=== PATIENT | male | born 1940 | race Caucasian/White ===

== ENCOUNTER → 2016-08-23 | Outpatient (CLI) | payer OTHER ==
--- NOTE | 2016-08-23 16:38 | DX ---
PA and Lateral Chest - August 23, 2016 at 1416 hours Clinical Indications: Dyspnea on exertion. Comparison: Spine radiographs June 01, 2011. Findings: The lungs are clear, and no masses are found. There is prominence of the epicardial fat p ad. The heart and pulmonary vessels are normal. There are no pleural effusions and no pneumothorax. The bones exhibit multilevel degenerative changes and anterior bridging hypertrophic osteoarthritic changes. Impression: No acute cardiopulmonary process.
== END ==
LOC: BMCIMAGING 14:19
PROVIDERS: ATTEND Internal Medicine
DX: R06.09 Other forms of dyspnea (principal)

== ENCOUNTER → 2016-09-01 | Outpatient (CLI) | payer OTHER ==
--- NOTE | 2016-09-01 13:14 | US ---
Bilateral Duplex/Doppler Carotid Sonography Clinical Indications: Altered mental status in a 76-year-old male; evaluate for arterial occlusive di sease. Technique: The cervical portions of the carotid and vertebral arteries were imaged and interrogated b y color and pulsed Doppler. Spectral analysis was performed. Findings: Right Carotid: The common carotid artery, bifurcation, and origins of the internal and external carot id arteries are well imaged. No plaque formation is seen at the level of the carotid bifurcation. Peak ICA systolic velocity; 81 cm/sec. The internal to common carotid artery ratio is calculated at 1.1. Peak ICA diastolic velocity; 29 cm/sec. There is no evidence of flow-limiting stenosis. Left Carotid: The common carotid artery, bifurcation, and origins of the internal and external caroti d arteries are well imaged. No plaque formation is seen at the level of the carotid bifurcation. Peak ICA systolic velocity; 78 cm/sec. The internal to common carotid artery ratio is calculated at 0.8. Peak ICA diastolic velocity; 26 cm/sec. There is no evidence of flow-limiting stenosis. Vertebral Arteries: Antegrade flow is shown by pulsed Duplex/Doppler of each vertebral artery. Impression: No carotid plaque formation is seen and there is no evidence for flow-limiting carotid st enosis. Measurement of carotid stenosis is based on velocity parameters that correlate the residual internal carotid diameter with [place] Symptomatic Carotid Endarterectomy Trial (NASCET) based stenosis levels.
== END ==
LOC: BMCIMAGING 11:31
PROVIDERS: ATTEND Internal Medicine
DX: R06.09 Other forms of dyspnea (principal); R41.82 Altered mental status, unspecified

== ENCOUNTER → 2017-01-16 | Outpatient (CLI) | payer OTHER | LOC: FCPNEURO 21:00 | PROVIDERS: ATTEND Psychiatry & Neurology Sleep Medicine | DX: G47.31 Primary central sleep apnea (principal); G47.33 Obstructive sleep apnea (adult) (pediatric) ==

== ENCOUNTER → 2017-03-17 | Outpatient (CLI) | payer OTHER | LOC: FCPNEURO 21:30 | PROVIDERS: ATTEND Psychiatry & Neurology Sleep Medicine | DX: G47.33 Obstructive sleep apnea (adult) (pediatric) (principal); G47.31 Primary central sleep apnea ==

== ENCOUNTER → 2017-09-26 | Outpatient (CLI) | payer OTHER ==
[~2017-09-26] MED LIST: GADOBUTROL 10 ML VIAL IVP ONE
== END ==
LOC: FIMAGING 15:10
PROVIDERS: ATTEND Internal Medicine
DX: G31.9 Degenerative disease of nervous system, unspecified (principal); R90.82 White matter disease, unspecified
CPT/HCPCS: 70553; A9585

== ENCOUNTER → 2017-12-14 | Outpatient (CLI) | payer OTHER ==
--- NOTE | 2017-12-14 11:56 | CPEEG ---
[f rep st] ELECTROENCEPHALOGRAM DATE OF STUDY: 12/14/2017 DATE OF INTERPRETATION: December 14, 2017 INTERPRETATION: Normal EEG during wakefulness and sleep. There were no potentially epileptogenic ab normalities present in the recording. REPORT: This EEG contains 10 Hz alpha activity over the posterior head regions. There was no abnorm al activation at rest or during photic stimulation. The patient fell asleep during the study. There was no abnormal activation during drowsiness, sleep, or during times of arousal. /[id number]/MODL
== END ==
LOC: FCPNEURO 09:54
PROVIDERS: ATTEND Psychiatry & Neurology Neurology
DX: R41.89 Other symptoms and signs involving cognitive functions and awareness (principal)

== ENCOUNTER → 2018-01-26 | Outpatient (CLI) | payer OTHER | LOC: BMCIMAGING 08:19 | PROVIDERS: ATTEND Internal Medicine | DX: R22.0 Localized swelling, mass and lump, head (principal); Z86.73 Personal history of transient ischemic attack (TIA), and cerebral infarction without residual deficits | CPT/HCPCS: 76536-PO ==

== ENCOUNTER → 2018-01-31 | Outpatient (CLI) | payer OTHER ==
[~2018-01-31] MED LIST changes: -GADOBUTROL 10 ML VIAL IVP ONE; +IOPAMIDOL (ISOVUE-300) 100 ML BTL ONE
== END ==
LOC: FIMAGING 08:20
PROVIDERS: ATTEND Internal Medicine
DX: M47.892 Other spondylosis, cervical region (principal)
CPT/HCPCS: 70491; Q9967

== ENCOUNTER → 2018-02-01 | Outpatient (CLI) | payer OTHER | LOC: FIMAGING 11:54 | PROVIDERS: ATTEND Internal Medicine | DX: R22.1 Localized swelling, mass and lump, neck (principal) ==

== ENCOUNTER 2018-02-11 09:19 | Emergency (ER) | payer OTHER ==
--- NOTE | 2018-02-11 09:31 | EDPHY ---
H & P Stated Complaint: Vague sxs;"spacey"x several months;recent CT/labs neg per pt; hot flash @8a Time Seen by Provider: 02/11/18 09:31 HPI/ROS: CHIEF COMPLAINT: "Feeling spacey" HISTORY OF PRESENT ILLNESS: The patient has a 1 and 1/2 year history of chronic cognitive complaints including fatigue and feeling spacey. The patient has had an extensive evaluation including brain MRI, EEG, extensive laboratory testing and imaging. Patient has seen a neurologist x2. He is also seen a neurosurgeon and primary care. There is no obvious diagnosis in this patient. He was started on Zoloft earlier in the week for his symptoms. He discontinued the medication on . He presents to the ED today after he had a "hot flash." The patient denies any acute headache. He denies any acute numbness or weakness. The patient denies any additional medication changes. REVIEW OF SYSTEMS: A comprehensive 10 point review of systems is otherwise negative aside from elements mentioned in the history of present illness. Source: Patient - Personal History Current Tetanus Diphtheria and Acellular Pertussis (TDAP): Yes - Medical/Surgical History Other PMH: Past medical history: Noncontributory - Social History Smoking Status: Former smoker - Physical Exam Exam: General Appearance: Alert, no distress Eyes: Pupils equal and round no pallor or injection ENT, Mouth: Mucous membranes moist Respiratory: There are no retractions, lungs are clear to auscultation Cardiovascular: Regular rate and rhythm Gastrointestinal: Abdomen is soft and nontender, no masses, bowel sounds normal Neurological: A&O, normal motor function, normal sensory exam, normal cranial nerves Skin: Warm and dry, no rashes Musculoskeletal: Neck is supple nontender Extremities: symmetrical, full range of motion Psychiatric: Patient is oriented X 3, there is no agitation Constitutional: Initial Vital Signs Temperature (C) 36.5 C 02/11/18 09:20 Heart Rate 83 02/11/18 09:20 Respiratory Rate 16 02/11/18 09:20 Blood Pressure 144/76 H 02/11/18 09:20 O2 Sat (%) 94 02/11/18 09:20 O2 Delivery Mode Room Air Allergies/Adverse Reactions: amoxicillin [Amoxicillin] Allergy (Verified 02/11/18 09:19) Sulfa (Sulfonamide Antibiotics) [Sulfa(Sulfonamide Antibiotics)] Allergy ( Verified 02/11/18 09:19) Home Medications: Medication Instructions Recorded Atorvastatin Calcium [Lipitor 10 10 mg PO DAILY 08/15/12 mg (RX)] Aspirin EC [Aspirin EC 81 mg (*)] 81 mg PO DAILY 02/11/18 Medical Decision Making ED Course/Re-evaluation: The patient is well-appearing, afebrile without any clinical evidence of stroke. I reviewed the patient's records over the past year including the results of an MRI, neck CT scan and EEG. It is certainly likely the patient experienced symptoms from the Zoloft he was prescribed earlier this week. Laboratory studies are within normal limits. The patient has been assured I see no evidence of an acute neurologic emergency. It is certainly possible the patient is experiencing depression. He has an appointment with his primary care provider this week to determine if an additional medication to replace Zoloft is indicated. - Data Points Laboratory Results: Laboratory Results 02/11/18 09:50 02/11/18 09:50 02/11/18 02/11/18 09:50 09:50 WBC 4.08 10^3/uL 10^3/uL (3.80-9.50) RBC 4.37 10^6/uL L 10^6/uL (4.40-6.38) Hgb 14.4 g/dL g/dL (13.7-17.5) Hct 40.9 % % (40.0-51.0) MCV 93.6 fL fL (81.5-99.8) MCH 33.0 pg pg (27.9-34.1) MCHC 35.2 g/dL g/dL (32.4-36.7) RDW 13.6 % % (11.5-15.2) Plt Count 186 10^3/uL 10^3/uL (150-400) MPV 10.4 fL fL (8.7-11.7) Neut % (Auto) 66.1 % % (39.3-74.2) Lymph % (Auto) 15.7 % % (15.0-45.0) [place] % (Auto) 17.2 % H % (4.5-13.0) Eos % (Auto) 0.0 % L % (0.6-7.6) Baso % (Auto) 0.0 % L % (0.3-1.7) Nucleat RBC Rel Count 0.0 % % (0.0-0.2) Absolute Neuts (auto) 2.70 10^3/uL 10^3/uL (1.70-6.50) Absolute Lymphs (auto) 0.64 10^3/uL L 10^3/uL (1.00-3.00) Absolute Monos (auto) 0.70 10^3/uL 10^3/uL (0.30-0.80) Absolute Eos (auto) 0.00 10^3/uL L 10^3/uL (0.03-0.40) Absolute Basos (auto) 0.00 10^3/uL L 10^3/uL (0.02-0.10) Absolute Nucleated RBC 0.00 10^3/uL 10^3/uL (0-0.01) Immature Gran % 1.0 % % (0.0-1.1) Immature Gran # 0.04 10^3/uL 10^3/uL (0.00-0.10) Sodium 139 mEq/L mEq/L (135-145) Potassium 4.1 mEq/L mEq/L (3.3-5.0) Chloride 107 mEq/L mEq/L (97-110) Carbon Dioxide 21 mEq/l L mEq/l (22-31) Anion Gap 11 mEq/L mEq/L (8-16) BUN 19 mg/dL mg/dL (7-23) Creatinine 0.8 mg/dL mg/dL (0.7-1.3) Estimated GFR > 60 Glucose 126 mg/dL H mg/dL (70-100) Calcium 9.6 mg/dL mg/dL (8.5-10.4) Departure - Departure Disposition: Home, Routine, Self-Care Clinical Impression: Cognitive changes Condition: Good Instructions: Altered Mental Status (ED) Additional Instructions: 1. Your laboratory testing demonstrates no significant abnormalities. I do believe your symptoms today are likely explained by your recent use of Zoloft. 2. Please follow up with your primary care provider as scheduled next week. Referrals: Shwetha Walters MD [Primary Care Provider] - As per Instructions
--- NOTE | 2018-02-11 09:36 | CPEKG ---
Heart Rate: 55 RR Interval: 1091 P-R Interval: 212 QRSD Interval: 96 QT Interval: 448 QTC Interval: 429 P [place]: 52 QRS [place]: 19 T Wave [place]: -18 EKG Severity - ABNORMAL ECG - EKG Impression: SINUS RHYTHM EKG Impression: LATERAL INFARCT, OLD EKG Impression: NONSPECIFIC T ABNORMALITIES, INFERIOR LEADS Electronically Signed By: Jay Jay Ambrocio 11-Feb-2018 11:07:25
[2018-02-11 10:13] LABS: PLATELET COUNT 186 10^3/uL (150-400)
[2018-02-11 10:34] VITALS: BP 152/87
== END 2018-02-11 10:52 | disposition home or self-care (01) ==
DX: G31.84 Mild cognitive impairment of uncertain or unknown etiology (principal); Z79.82 Long term (current) use of aspirin; Z87.891 Personal history of nicotine dependence

== ENCOUNTER 2018-11-20 08:19 | Observation (INO) | payer OTHER ==
--- NOTE | 2018-11-20 08:11 | EDPHY ---
H & P Time Seen by Provider: 11/20/18 08:20 Constitutional: Initial Vital Signs Heart Rate 59 L 11/20/18 08:31 Respiratory Rate 16 11/20/18 08:31 Blood Pressure 158/79 H 11/20/18 08:31 O2 Sat (%) 97 11/20/18 08:31 O2 Delivery Mode Room Air Allergies/Adverse Reactions: amoxicillin [Amoxicillin] Allergy (Verified 11/20/18 10:06) Rash Sulfa (Sulfonamide Antibiotics) [Sulfa(Sulfonamide Antibiotics)] Allergy ( Verified 11/20/18 10:06) Rash Home Medications: Medication Instructions Recorded Atorvastatin Calcium [Lipitor 10 10 mg PO Q2D 08/15/12 mg (RX)] Aspirin EC [Aspirin EC 81 mg (*)] 81 mg PO HS 02/11/18 Cholecalciferol Vit D3 [Vitamin D3 1,000 units PO DAILY 11/20/18 (*)] Cyanocobalamin [Vitamin B12 (*)] 1,000 mcg PO DAILY 11/20/18 Famotidine [Pepcid 20 MG (*)] 20 mg PO BID PRN 11/20/18 Herbals/Supplements -Info Only 1 ea PO DAILY 11/20/18 Ibuprofen [Motrin (*)] 200 mg PO DAILY PRN 11/20/18 Naproxen Sodium [Aleve 220 MG (*)] 220 mg PO BIDMEAL 11/20/18 Timolol 0.5% [TIMOPTIC 0.5% (*)] 1 drops RTEYE DAILY 11/20/18 methYLPHENIDATE HCL [Ritalin 10mg 10 mg PO DAILY PRN 11/20/18 (*)] Medical Decision Making - Diagnostics Imaging Results: Imaging Impressions Head CT 11/20/18 08:23 Impression: 1. No acute intracranial process. 2. Age-appropriate generalized cerebral volume loss with sequelae of chronic microvascular ischemic disease. Findings and recommendations discussed with Adolfo Marie MD at 834 hour, . Head CTA 11/20/18 08:30 Impression: 1. Relatively normal CT angiogram of the neck. There is some tortuosity of the distal right ICA below the skull base. 2. Normal CT angiogram of [place], as detailed above. Minimal calcified plaque at the carotid siphon level bilaterally. Note: All calculations were performed using NASCET criteria. Findings discussed with Adolfo Marie MD at 9:36 hour, 11/20/2018. Neck CTA 11/20/18 08:30 Impression: 1. Relatively normal CT angiogram of the neck. There is some tortuosity of the distal right ICA below the skull base. 2. Normal CT angiogram of [place], as detailed above. Minimal calcified plaque at the carotid siphon level bilaterally. Note: All calculations were performed using NASCET criteria. Findings discussed with Adolfo Marie MD at 9:36 hour, 11/20/2018. Imaging: Discussed imaging studies w/ house calls nurse practitioner Radiologist, I viewed and interpreted images myself ED Course/Re-evaluation: CHIEF COMPLAINT: Stroke alert HISTORY OF PRESENT ILLNESS: The patient is an 78 y/o male with a history of hypercholesteremia arriving emergently via EMS as a stroke alert. Per the patient while he was getting dressed this morning at 07:30, 45 minutes ago, he was "just making noises" and was unable to say the words he was thinking about. He then looked in the mirror and noticed that his smile was lopsided as the right side of his mouth was drooping. When EMS arrived, the patient was still unable to talk. While en route , his symptoms started to mildly improve. After arriving to the emergency department he states that he sis "still not talking normally". EMS notes that the patient's symptoms have improved and the patient is talking in samayoa sentences. He does take a baby aspirin daily, but is otherwise not anticoagulated. He denies any recent trauma. No fever, headache, body aches, lightheadedness, chest pain, heart palpitations, shortness of breath, cough, abdominal pain, urinary or bowel complaints. REVIEW OF SYSTEMS: A 10 point review of systems was performed and is negative with the exception of the elements mentioned in the history of present illness. PHYSICAL EXAM: HR, BP, O2 Sat, RR. Temp noted General Appearance: Alert, well hydrated, appropriate, and non-toxic appearing. Head: Atraumatic without scalp tenderness or obvious injury Eyes: Pupils equal, round, reactive to light and accommodation, EOMI, no trauma , no injection. Ears: Clear bilaterally, no perforation, normal landmarks Nose: Atraumatic, no rhinorrhea, clear. Throat: There is no erythema or exudates, no lesions, normal tonsils, mucus membranes moist. Neck: Supple, 2+ carotid upstroke, nontender, no lymphadenopathy. Respiratory: No retractions, no distress, no wheezes, and no accessory muscle use. Lungs are clear to auscultation bilaterally. Cardiovascular: Regular rate and rhythm, no murmurs, rubs, or gallops. Bilateral carotid, radial, dorsalis pedis, and posterior tibial pulses intact. Good capillary refill all extremities. Gastrointestinal: Abdomen is soft, nontender, non-distended, no masses, no rebound, no guarding, no peritoneal signs. Musculoskeletal: Normal active ROM of all extremities, atraumatic. Neurological: Dysarthric speech with crescendo/decrescendo symptoms. No large vessel or peripheral findings. Alert and interactive. The patient has normal DTRs and non-focal cranial nerves, motor, sensory, and cerebellar exam. Skin: No rashes, good turgor, no nodules on palpation. Past medical history: Hypercholesteremia Past surgical history: Denies Family history: Denies Social history: at bedside, DIAGNOSTICS/PROCEDURES/CRITICAL CARE TIME: Head CT: No acute findings. EKG: The 12 lead EKG was interpreted by myself as sinus rhythm with a rate of 57. See hard copy and/or "tracemaster" electronic copy for interpretation. Head CTA: No acute findings. Neck CTA: No acute findings. Critical care time spent by me, Dr. Marie, exclusively with this patient was 45 minutes, exclusive of PA time and exclusive of procedures. The organ system at risk was neurovascular and I gave aspirin and transferred the patient to the neurologist to prevent worsening of the patients condition. DIFFERENTIAL DIAGNOSIS: The differential diagnosis for the patient's neurologic deficits included but was not limited to peripheral causes, central causes including CVA, TIA, electrolyte abnormalities and dehydration, cardiogenic causes, atypical causes like migraine syndrome. MEDICAL DECISION MAKING: The patient is an 78 y/o male with a history of hypercholesteremia arriving emergently via EMS as a stroke alert. Per the patient, while he was getting dressed this morning at 07:30, 45 minutes ago, he was "just making noises" and was unable to say the words he was thinking about. He then looked in the mirror and noticed that his smile was lopsided as the right side of his mouth was drooping. When EMS arrived, the patient was still unable to talk. While en route , his symptoms started to mildly improve. The patient states that he is "still not talking normally". Labs, EKG, and head CT ordered. 0817: I met EMS upon arrival. 0829: Patient is back in the room with the stroke robot and his symptoms are mildly worse. Patient appears to be having crescendo/decrescendos symptoms. Patient is still dysarthric and when he speaks you can see the tongue struggling. No peripheral or cranial nerve issue. 0831: I consulted with Dr. Maier, neurologist from [facility], regarding this patient. 0833: I spoke with Dr. Jerome, radiologist, regarding patient's head CT. There are no acute findings. 0838: Reassessed patient; Dr. Maier is on the stroke robot. Dr. Maier states that this patient is an NIH of 1 and iis not a candidate for TPA as the risk outweighs the benefit. The patient states he did not take aspirin yet, 324mg Aspirin administered. Head and neck CTA ordered. I have also paged the [facility] neurologist. 0843: I interpreted patient's EKG as sinus rhythm with a rate of 57. 0847: I consulted with Dr. Regalado, neurologist, regarding this patient who defers to [facility] on the decision for TPA as [facility] handles more strokes. He does agree to consult on this patient during his admission. 0852: I consulted with Dr. Maier regarding this patient and the decision not to give TPA. Patient has too large of a risk for a hemorrhaging. 0905: I consulted with the hospitalist service, Dr. Reed accepts admission of this patient. 0940: I spoke with Dr. Navas, radiologist, who reports that the head and neck CTA's are negative. Patient is safe to go to the floor now. - Data Points Laboratory Results: Laboratory Results 11/20/18 08:45 11/20/18 08:45 11/20/18 11/20/18 11/20/18 08:45 08:45 08:45 WBC 4.78 10^3/uL 10^3/uL (3.80-9.50) RBC 4.35 10^6/uL L 10^6/uL (4.40-6.38) Hgb 14.0 g/dL g/dL (13.7-17.5) POC Hgb Hct 42.2 % % (40.0-51.0) POC Hct MCV 97.0 fL fL (81.5-99.8) MCH 32.2 pg pg (27.9-34.1) MCHC 33.2 g/dL g/dL (32.4-36.7) RDW 14.3 % % (11.5-15.2) Plt Count 158 10^3/uL 10^3/uL (150-400) MPV 10.5 fL fL (8.7-11.7) Neut % (Auto) 52.4 % % (39.3-74.2) Lymph % (Auto) 28.2 % % (15.0-45.0) [place] % (Auto) 18.4 % H % (4.5-13.0) Eos % (Auto) 0.2 % L % (0.6-7.6) Baso % (Auto) 0.2 % L % (0.3-1.7) Nucleat RBC Rel Count 0.0 % % (0.0-0.2) Absolute Neuts (auto) 2.50 10^3/uL 10^3/uL (1.70-6.50) Absolute Lymphs (auto) 1.35 10^3/uL 10^3/uL (1.00-3.00) Absolute Monos (auto) 0.88 10^3/uL H 10^3/uL (0.30-0.80) Absolute Eos (auto) 0.01 10^3/uL L 10^3/uL (0.03-0.40) Absolute Basos (auto) 0.01 10^3/uL L 10^3/uL (0.02-0.10) Absolute Nucleated RBC 0.00 10^3/uL 10^3/uL (0-0.01) Immature Gran % 0.6 % % (0.0-1.1) Immature Gran # 0.03 10^3/uL 10^3/uL (0.00-0.10) PT 13.0 SEC SEC (12.0-15.0) INR 1.02 (0.83-1.16) APTT 27.2 SEC SEC (23.0-38.0) POC Sodium Sodium 141 mEq/L mEq/L (135-145) POC Potassium Potassium 4.3 mEq/L mEq/L (3.5-5.2) POC Chloride Chloride 108 mEq/L mEq/L (97-110) Carbon Dioxide 25 mEq/l mEq/l (22-31) POC Total CO2 Anion Gap 8 mEq/L mEq/L (6-14) POC BUN BUN 21 mg/dL mg/dL (7-23) Creatinine 0.9 mg/dL mg/dL (0.7-1.3) POC Creatinine Estimated GFR > 60 Glucose 92 mg/dL mg/dL (70-100) POC Glucose Calcium 9.3 mg/dL mg/dL (8.5-10.4) POC Troponin I 11/20/18 11/20/18 08:42 08:38 WBC RBC Hgb POC Hgb 15.0 gm/dL gm/dL (13.7-17.5) Hct POC Hct 44 % % (40-51) MCV MCH MCHC RDW Plt Count MPV Neut % (Auto) Lymph % (Auto) [place] % (Auto) Eos % (Auto) Baso % (Auto) Nucleat RBC Rel Count Absolute Neuts (auto) Absolute Lymphs (auto) Absolute Monos (auto) Absolute Eos (auto) Absolute Basos (auto) Absolute Nucleated RBC Immature Gran % Immature Gran # PT INR APTT POC Sodium 142 mEq/L mEq/L (135-145) Sodium POC Potassium 4.1 mEq/L mEq/L (3.3-5.0) Potassium POC Chloride 107 mEq/L mEq/L (97-110) Chloride Carbon Dioxide POC Total CO2 23 mEq/L mEq/L (22-31) Anion Gap POC BUN 22 mg/dL mg/dL (7-23) BUN Creatinine POC Creatinine 0.9 mg/dL mg/dL (0.7-1.3) Estimated GFR Glucose POC Glucose 96 mg/dL mg/dL (70-100) Calcium POC Troponin I 0.00 ng/mL ng/mL (0.00-0.08) Medications Given: Atorvastatin Calcium (Lipitor) 10 mg PO Q2D ORTEGA Stop: 05/19/19 08:59 Last Admin: 11/20/18 12:06 Dose: 10 mg Sodium Chloride (Ns) 1,000 mls @ 70 mls/hr IV CONT ORTEGA Stop: 05/19/19 10:59 Last Admin: 11/20/18 11:37 Dose: 1,000 mls Timolol Maleate (Timoptic 0.5%) 1 drops RTEYE DAILY ORTEGA Stop: 05/19/19 11:14 Last Admin: 11/20/18 12:43 Dose: Not Given Discontinued Medications Aspirin (Aspirin) 324 mg PO EDNOW ONE Stop: 11/20/18 08:40 Last Admin: 11/20/18 09:10 Dose: Not Given Aspirin (Aspirin Rectal) 300 mg ME EDNOW ONE Stop: 11/20/18 09:08 Last Admin: 11/20/18 08:39 Dose: 300 mg Point of Care Test Results: Chemistry 11/20/18 11/20/18 08:42 08:38 POC Sodium 142 mEq/L mEq/L (135-145) POC Potassium 4.1 mEq/L mEq/L (3.3-5.0) POC Chloride 107 mEq/L mEq/L (97-110) POC Total CO2 23 mEq/L mEq/L (22-31) POC BUN 22 mg/dL mg/dL (7-23) POC Creatinine 0.9 mg/dL mg/dL (0.7-1.3) POC Glucose 96 mg/dL mg/dL (70-100) POC Troponin I 0.00 ng/mL ng/mL (0.00-0.08) ISTAT H&H 11/20/18 08:42 POC Hgb 15.0 gm/dL gm/dL (13.7-17.5) POC Hct 44 % % (40-51) Departure - Departure Disposition: [facility] Inpatient Acute Clinical Impression: Acute ischemic stroke, Dysarthria Condition: Fair Report Scribed for: Adolfo Marie Report Scribed by: Arleth Diallo Date of Report: 11/20/18 Time of Report: 08:21
[2018-11-20] MEDS ORDERED: ALTEPLASE 100 MG/100 ML VIAL IV ONE (08:28)
[2018-11-20] MEDS ORDERED: IOPAMIDOL (ISOVUE 370) 100 ML BTL IV ONE (08:37)
[2018-11-20] MEDS ORDERED: ASPIRIN 81 MG CHEWABLE TAB PO ONE (08:39)
[2018-11-20] MEDS ORDERED: ASPIRIN RECTAL 300 MG SUPP PR ONE ×2 (08:46→09:07)
[2018-11-20 08:55] LABS: PLATELET COUNT 158 10^3/uL (150-400)
[2018-11-20] MEDS ORDERED: ATORVASTATIN CALCIUM 10 MG TAB PO SCH (09:00)
[2018-11-20 10:04] LABS: INR 1.02 (0.83-1.16)
[2018-11-20] MEDS ORDERED: NS 1,000 ML IV SCH (11:00)
[2018-11-20] MEDS ORDERED: FAMOTIDINE 20 MG TAB PO PRN (11:05)
[2018-11-20] MEDS ORDERED: TIMOLOL 0.5% 15 ML OPHT.BTL RTEYE SCH (11:15)
--- NOTE | 2018-11-20 11:38 | GHP ---
[f rep st] HISTORY AND PHYSICAL DATE OF ADMISSION: 11/20/2018 CHIEF COMPLAINT: Difficulty speaking. HISTORY OF PRESENT ILLNESS: The patient is an 78-year-old gentleman with a history of hypercholesteremia who arrived to the emergency room for a stroke alert. The patient noticed 7:30 this morning when he tried to speak to his , he was unable to speak at all. He describes that he was only able to make sounds and noises, and his speech would not come back. Then around 8 a.m. while in the ambulance, he was able to speak, but he was having difficulty speaking. During my interview, he is stating that it is difficult to find the words and how to say them accurately, even though he knows what he wants to say. He was seen and evaluated by Farhad Estrada, and was not felt to be a tPA candidate. Of note, he has a history of, as he describes, feeling "foggy." He has been seen by a neurologist at the [facility]. They have not found any etiology of this. In addition, he has a history of migraine attacks. He has visual disturbances and even blindness with it. He has also had some episodes of aphasia when he has migraines. He said none of his history of migraines have presented like he did on this admission. He also is noted to have twitching type movements. This has been seen and evaluated by a neurologist; nothing clearly has been found. He has a loop recorder that was placed approximately a year ago from [facility]. He was not able to tell me why this was placed in, but to follow up if he had any arrhythmias. He said, as far as he knows, they have never found any type of arrhythmias. During my interview, he denies any chest pain, any shortness of breath. No changes in his vision or hearing. No changes in his weight. He does not have any issues with constipation, diarrhea, or urination issues. PAST MEDICAL HISTORY: 1. Glaucoma. 2. Osteoarthritis. 3. Hyperlipidemia. PAST SURGICAL HISTORY: 1. Hernia repair. 2. Cataract surgery. 3. Steroid injections for ongoing pain. SOCIAL HISTORY: His is at the bedside. They have been for 30 years. He has 2 biologic children and 2 from his . 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 He has a history of smoking for approximately 20 years, a half a pack a day. He stopped smoking in 1975. He does not have any alcohol use. FAMILY HISTORY: His father of complications from colon cancer at age 79. His mom at age 92. He is not clear what exactly she from. ALLERGIES: Amoxicillin and sulfa. HOME MEDICATIONS: Timoptic 1 drop to his right eye daily, Aleve 220 mg p.o. b.i.d., ibuprofen 200 mg daily p.r.n., herbal supplements 1 tab daily, Pepcid 20 mg p.o. b.i.d. p.r.n., vitamin B12 1000 mcg daily, vitamin D3 1000 units daily, Ritalin 10 mg daily p.r.n., Lipitor 10 mg every 2 days, aspirin 81 mg p.o. at bedtime. REVIEW OF SYSTEMS: A 10-point review of system was performed, and was negative other than pertinent positives in the HPI and past medical history. PHYSICAL EXAM: GENERAL: The patient is an 78-year-old gentleman who appears to be in good health. VITAL SIGNS: Blood pressure is 150/83, heart rate 54, respiratory rate of 17. O2 sat on room air is 95%. Temperature 36.5 Celsius. EYES: Pupils are equal and reactive. EOMs are intact. No conjunctival injection noted. ENT: Normal ears. Hearing intact. NECK: Trachea is midline. CARDIOVASCULAR: He is in a regular rate and rhythm. No murmurs, rubs , or gallops noted. CHEST/LUNGS: Normal respiratory effort. Clear without wheezing, rales, rhonchi. ABDOMEN: Soft, nontender. SKIN: No rashes or ulcer. MUSCULOSKELETAL: Equal upper and lower extremity strength. PSYCHIATRIC : He is alert and oriented. Normal mood and affect. Normal judgment and insight and normal memory. NEUROLOGIC: He continues to have dysarthric speech. At times, he appears to have trouble saying the word, and then is clear at times. His tongue is midline. He has an ever so slight pronator drift with the left hand. I reviewed the patient's care with Dr. Marie, emergency room physician. Data reviewed. 1. Head CT showed no acute intracranial process. He has age-appropriate generalized cerebral volume loss of chronic microvascular ischemic disease. 2. EKG, which I interpreted and evaluated myself, shows a sinus rhythm. 3. Head and neck CTA shows a relatively normal CT angiogram of the neck. There is a tortuosity of the distal right ICA below the skull base. He has a normal CT angiogram of the [place] [address]. LABORATORY DATA: A chemistry panel shows a sodium of 141, potassium 4.3, chloride of 108, CO2 of 28, BUN of 21, creatinine 0.9, glucose of 92. Troponin is 0.00. Coags show a pro-time of 13, INR of 1.02, PTT of 27.2. A CBC shows a white blood cell count of 4.78, hemoglobin 14, hematocrit 42, platelet count of 158. ASSESSMENT/PLAN: 1. Neurologic symptoms, concerning for a stroke versus a migraine. Will get an MRI to further evaluate to rule out a stroke. Will place him on telemetry monitoring for 24 hours. He received aspirin therapy and is on statin therapy. Will check a hemoglobin A1c, as well as a lipid panel. Will check an echocardiogram. The neurologist will see the patient later today. Therapies have been ordered. 2. Hypertension, without a diagnosis of this. Will monitor throughout his stay. Will allow for permissive hypertension in case he did have a stroke. 3. History of migraines. Continue monitoring. 4. Glaucoma. Will resume his eye drops. 5. Hyperlipidemia. On statin therapy. 6. Deep venous thrombosis prophylaxis. Moderate to high risk. Will initiate low molecular weight heparin tomorrow. 7. Code status. DO NOT RESUSCITATE. 8. Length of stay: He will require less than a 2-midnight stay, which will make him observation status. This can be further evaluated in the morning. Copy requested to: Dr. Regalado /[id number]/MODL MTDD
--- NOTE | 2018-11-20 13:09 | NEUROPROG ---
Assessment: [id number] - Neurology Consult: - CC: Speech Disturbance - HPI: 11/20/18: Pt developed acute problems speaking and a right facial droop at 7:30 am on 11/20/18. Symptoms improved in ambulance and at ER he was able to speak better but still had some facial droop and mild speech issues. Teleneurology saw pt and did not recommend TPA due to an NIH SS of 1 and rapidly improving symptoms. Head CT showed no acute bleed. I saw pt on 11/20/18. His neurologic exam showed subtle right facial droop and very mild possible expressive aphasia. Pt did report a history of migraines in the past associated with aphasia but this current episode feels different. CTA head/neck without any acute concerning findings or significant carotid stenosis. At this time I am unsure if he is having a small stroke versus an atypical migraine with aphasia and facial droop (based on PMHx). I will get a brain MRI to differentiate cause of symptoms. Pt does have a loop recorder in place for months but he cannot recall the reason why. - PMHx: HLD - Home Meds: ASA 81 mg qd, lipitor 10 mg qd - SHx: speaks danish FHx: parents - ROS: Pt denied acute fever, total vision loss, active severe chest pain, respiratory failure, total body severe rash, total bowel/bladder incontinence, psychosis, active seizures, or active bleeding - O: VS reviewed General: Alert Eyes: Fundoscopic exam not able to visualize optic disks CV: Heart RRR, no murmur, no carotid bruit Lungs: Clear to auscultation bilaterally, no rhonchi or rales Neuro: - Mental: . Oriented x person/place/date . concentration appears normal . speech fluency/comprehension shows possible mild expressive aphasia . memory appears normal . fund of knowledge appear intact - Cranial Nerves: . II: PERRL, VFFTC . III/IV/: EOMI, no nystagmus, normal smooth pursuits, no Ptosis . V: facial sensation intact to LT . VII: subtle right lower facial droop . VIII: hearing intact to conversation . IX/X: uvula raises symmetrically . XI: SCM 5/5 B/L strength . XII: tongue protrudes midline w/nl strength - Motor: . Tone: normal tone in all 4 extremity . Strength: no pronator drift, strength 5/5 throughout (B/L delt, bic, tri, hand parts lister, hf/he, df/pf) - Reflexes: B/L bic 2/4 - Sensory: all 4 extremity intact to light touch - Coord: iwwkdu-gl-ltdo wnl, EDUIN wnl, sodc-eo-xbkw wnl - Gait: normal casual gait - Labs: 11/20/18- Na 142 - Rads: 11/20/18- Head CT wo: no acute intracranial process (I Personally visualized the images on 11/20/18) 11/20/18- Head/neck CTA: no flow-limiting carotid stenosis, unremakable study - Assessment: 1. Stroke versus atypical migraine on 11/20/18 causing speech disturbance and right facial weakness - Plan: - Brain MRI wo - TTE - 24 hour telemetry - Continue aspirin 81 mg qd for stroke prevention - Check H1AC and LDL Objective: Vital Signs Temp Pulse Resp BP Pulse Ox 36.5 C 59 L 23 H 136/80 H 94 11/20/18 12:00 11/20/18 12:00 11/20/18 12:00 11/20/18 12:00 11/20/18 12:00 11/19/18 11/20/18 11/21/18 05:59 05:59 05:59 Intake Total 0 Output Total 0 Balance 0 PT 13.0 SEC (12.0-15.0) 11/20/18 08:45 INR 1.02 (0.83-1.16) 11/20/18 08:45 Allergies/Adverse Reactions: amoxicillin [Amoxicillin] Allergy (Verified 11/20/18 10:06) Rash Sulfa (Sulfonamide Antibiotics) [Sulfa(Sulfonamide Antibiotics)] Allergy ( Verified 11/20/18 10:06) Rash
--- NOTE | 2018-11-20 13:49 | CPEKG ---
Test Reason : OPEN Blood Pressure : / mmHG Vent. Rate : 057 BPM Atrial Rate : 058 BPM P-R Int : 205 ms QRS Dur : 098 ms QT Int : 456 ms P-R-T Axes : 062 036 -05 degrees QTc Int : 444 ms Sinus rhythm Confirmed by Adolfo Marie ([id number]) on 11/20/2018 1:48:53 PM Referred By: Adolfo Marie Confirmed By:Adolfo Marie
--- NOTE | 2018-11-20 16:58 | ECHO ---
[email or web address] [id number] Main: [phone] Echocardiography Examination Transthoracic Name: SAE PIZARRO MR#: [id number] Study Date: 11/20/2018 Study Time: 12:53 PM Date of : 1940 Age: 78 year(s) Height: 177.8 cm (70 in.) Weight: 87.09 kg (192 lb.) BSA: 2.05 m2 Gender: Male Examination: Limited Echo with Agitated Saline Contrast: Image Quality: Adequate Rhythm: Heart Rate: BP: / Indication: Hemorrhagic Stroke Procedure Staff Referring Physician: [employer] Clerk: Kierra Gifford [facility] Reading Physician: Cole Young MD Requesting Provider: Ordering Physician: Yolis Ireland Indication: Hemorrhagic Stroke Measurements Chambers AV/MV Label Value Normal Value Label Value Normal Value Additional Vessels AV PGmax 9 mmHg Label Value Normal Value AV PGmean 6 mmHg AoAsc 3 cm AV Vmax 1.51 m/s TV/PV Label Value Normal Value RA Pressure 5 mmHg RVSP 26 mmHg TR Pmax 21 mmHg TR Vmax 2.27 m/s PV PGmax 13 mmHg PV PGmean 8 mmHg PV Vmax, Caliper 1.79 m/s (0.6m/s - 0.9m/s) PV Vmean 1.35 m/s PV VTI 28.9 cm Conclusions 1. The left ventricle is normal in size and function. The ejection fraction equals 60-65%. 2. The aortic valve is trileaflet. There is no aortic stenosis. There was mild aortic insufficiency. 3. The mitral valve is normal in structure. There is moderate mitral regurgitation. Patient: SAE PIZARRO Study Date: 11/20/2018 Page 1 of 2 12:53 PM 4. There is moderate pulmonic insufficiency. 5. The pulmonary artery pressure estimate is 26 mm of mercury. 6. There is evidence of right to left shunt by bubble study. Findings Left Ventricle: Normal global systolic left ventricular function. EF range is estimated at 60 % - 65 %. There are no regional wall motion abnormalities. Right Ventricle: Normal size right ventricle. Right ventricular systolic function is normal. IAS: An agitated saline study was performed and was positive for intracardiac shunting. Mitral Valve: Eccentric mitral regurgitation which appears moderate with multiple jets. Mitral valve appears structurally normal. Aortic Valve: Aortic leaflets are structurally normal. Mild aortic regurgitation is present. There is no aortic stenosis. There is aortic sclerosis present. Tricuspid Valve: Tricuspid valve leaflets are structurally normal. Mild tricuspid regurgitation. Right Ventricular systolic pressure is measured at 26 mmHg. Pulmonic Valve: Eccentric moderate pulmonic regurgitation. Pulmonic leaflets are normal in appearance. Aorta: The ascending aorta measures 3.0 cm. Exam Details Procedure Ordered: Limited Echo with Agitated Saline Procedure Status: Routine study Image Quality: Adequate Facility Location: Cardiac Echo 1 (No Signature Object) Patient: SAE PIZARRO Study Date: 11/20/2018 Page 2 of 2 12:53 PM [id number]
[2018-11-20] MEDS ORDERED: ASPIRIN EC 81 MG TAB PO SCH (21:00)
[2018-11-21 08:04] VITALS: BP 140/90
--- NOTE | 2018-11-21 08:04 | NEUROPROG ---
Assessment: [id number] - Neurology Consult: - CC: F/U for complex migraine - Narrative Summary: 11/20/18: Pt developed acute problems speaking and a right facial droop at 7:30 am on 11/20/18. Symptoms improved in ambulance and at ER he was able to speak better but still had some facial droop and mild speech issues. Teleneurology saw pt and did not recommend TPA due to an NIH SS of 1 and rapidly improving symptoms. Head CT showed no acute bleed. I saw pt on 11/20/18. His neurologic exam showed subtle right facial droop and very mild possible expressive aphasia. Pt did report a history of migraines in the past associated with aphasia but this current episode feels different. CTA head/neck without any acute concerning findings or significant carotid stenosis. At this time I am unsure if he is having a small stroke versus an atypical migraine with aphasia and facial droop (based on PMHx). I will get a brain MRI to differentiate cause of symptoms. Pt does have a loop recorder in place for months but he cannot recall the reason why. - HPI: F/U 11/21/18. 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 LDL 60L. It appears the patient likely had a migraine that caused stroke resurfesence of his old cerebellar strokes to explain his prolonged right lower facial droop and speech disturbance. Treatment is symptomatic for migraines. Continue aspirin 81 mg qd and lipitor 10 mg qd for stroke prevention given old cerebellar strokes. - PMHx: HLD - Home Meds: ASA 81 mg qd, lipitor 10 mg qd - SHx: speaks japanese FHx: parents - ROS: Pt denied acute fever, total vision loss, active severe chest pain, respiratory failure, total body severe rash, total bowel/bladder incontinence, psychosis, active seizures, or active bleeding - Labs: 11/21/18- LDL 60L - Rads: 11/20/18- Head CT wo: no acute intracranial process (I Personally visualized the images on 11/20/18) 11/20/18- Head/neck CTA: no flow-limiting carotid stenosis, unremarkable study 11/20/18- TTE: no cardioembolic stroke source noted 11/20/18- Brain MRI wo: no acute stroke, old cerebellar strokes - Assessment: 1. atypical migraine on 11/20/18 causing speech disturbance and right facial weakness: It appears the patient likely had a migraine that caused stroke resurfesence of his old cerebellar strokes to explain his prolonged right lower facial droop and speech disturbance. Given that his symptoms lasted for hours but his brain MRI showed no ischemia makes me believe he did NOT have an acute stroke or TIA. Treatment is symptomatic for migraines. - 2. Old Cerebellar Strokes: Continue aspirin 81 mg qd and lipitor 10 mg qd for stroke prevention given old cerebellar strokes - Plan: - Continue aspirin 81 mg qd for stroke prevention - Continue Lipitor 10 mg qd for stroke prevention - Work closely with PCM to ensure blood pressure < 140/90, H1AC < 7.0, and LDL < 70 - No further inpatient w/u needed, neurology will sign off - 35 min spent with patient, majority of time spent counseling on symptoms and treatment options as well as prognosis. Objective: Vital Signs Temp Pulse Resp BP Pulse Ox 36.5 C 50 L 18 128/64 H 98 11/21/18 04:00 11/21/18 04:00 11/21/18 04:00 11/21/18 04:00 11/21/18 04:00 11/20/18 11/21/18 11/22/18 05:59 05:59 05:59 Intake Total 1150 Output Total 0 Balance 1150 PT 13.0 SEC (12.0-15.0) 11/20/18 08:45 INR 1.02 (0.83-1.16) 11/20/18 08:45 Allergies/Adverse Reactions: amoxicillin [Amoxicillin] Allergy (Verified 11/20/18 10:06) Rash Sulfa (Sulfonamide Antibiotics) [Sulfa(Sulfonamide Antibiotics)] Allergy ( Verified 11/20/18 10:06) Rash
[2018-11-21] MEDS ORDERED: ENOXAPARIN 40 MG/0.4 ML SYR SC SCH (09:00)
[2018-11-21] MEDS ORDERED: CYANO/VITAMIN B12 1000 MCG TAB PO SCH (09:00)
[2018-11-21] MEDS ORDERED: CHOLECALCIFEROL VIT D3 1,000 UNITS TAB PO SCH (09:00)
--- NOTE | 2018-11-21 10:45 | HOSPPROG ---
Hospitalist Progress Note Assessment/Plan: 78 yo M w dysarthria, neg stroke workup home today see dc summary Subjective: having recurrent expressive aphasia Objective: Vital Signs Temp Pulse Resp BP Pulse Ox 36.5 C 50 L 20 140/90 H 97 11/21/18 08:00 11/21/18 08:00 11/21/18 08:00 11/21/18 08:00 11/21/18 08:00 11/20/18 11/21/18 11/22/18 05:59 05:59 05:59 Intake Total 1150 Output Total 0 Balance 1150 PT 13.0 SEC (12.0-15.0) 11/20/18 08:45 INR 1.02 (0.83-1.16) 11/20/18 08:45 - Physical Exam Constitutional: no apparent distress, appears nourished Eyes: PERRL, anicteric sclera Ears, Nose, Mouth, Throat: moist mucous membranes, hearing normal Cardiovascular: regular rate and rhythym, no murmur, rub, or gallop Respiratory: no respiratory distress, no rales or rhonchi Gastrointestinal: normoactive bowel sounds, soft, non-tender abdomen Genitourinary: no bladder fullness, No hackett in urethra Skin: warm, normal color Musculoskeletal: full muscle strength Neurologic: other (expressive aphasia w some dysarthria) Psychiatric: interacting appropriately Lymph, Heme, Immunologic: no cervical LAD, no supraclavicular LAD ICD10 Worksheet Patient Problems: Problems Problem Status Onset Acute ischemic stroke Acute Dysarthria Acute
--- NOTE | 2018-11-21 10:49 | PDIAF ---
- Diagnosis Diagnosis: dysarthria Code Status: Do Not Resuscitate - Medication Management Discharge Medications: electronically signed and located in the Home Medication List. - Orders Services needed: Speech Language Pathologist Diet Texture: Regular Texture Diet, Thin Liquids, Meds Whole w/Liquids - Follow Up Care Current Providers and Referrals: Patient,NotPresent [Unknown] - As per Instructions
--- NOTE | 2018-11-21 11:05 | ASMTDCNOTE ---
Case Management Discharge Discharge Order Complete? Answers: Yes Patient to Obtain Answers: via Family Medications Transportation Arranged Answers: Family/Friends Transport will Pick (Date 11/21/2018 12:00 AM & Time) Family Notified Answers: Yes Notes: in the room Discharge Comments Notes: Spoke with pt and in the room. Pt admitted for CVA. PT and OT evaluated and cleared him for home. Pt and comfortable with this plan. No CM needs noted at this time. CM available should needs change. Date Signed: 11/21/2018 11:05 AM Electronically Signed By:Sarah Dc
--- NOTE | 2018-11-21 11:07 | ASMTCMCOM ---
CM Note CM Note Notes: CORRECTION: Pt admitted for expressive aphasia. Negative CVA workup. Date Signed: 11/21/2018 11:07 AM Electronically Signed By:Sarah Dc
--- NOTE | 2018-11-21 11:11 | ASDISCHSUM ---
Discharge Information Plan Status:Home with No Needs Medically Cleared to Leave:11/21/2018 Discharge Date:11/21/2018 CM D/C Disposition:Home Health Service ADT D/C Disposition: Projected Discharge Date:11/21/2018 Transportation at D/C:Family Discharge Delay Reason: Follow-Up Date:11/21/2018 Discharge Slot: Final Diagnosis:expressive aphasia Placement Information Patient Contact Information Contact Name:MARISABEL Relationship: Address:[address] City:[place] Alternate Phone: State/Zip Code:[place] [address] Email: Financial Information Financial Class:Medicare Primary Plan Desc:MEDICARE OUTPATIENT Primary Plan Number:[id number] Secondary Plan Desc:[facility] Secondary Plan Number:[id number] Assessment Information LACE LACE Length of stay for Answers: Less than 1 day current admission Acuity / Level of Answers: No Care: Did the patient have an inpatient admission? Comorbidities - select Answers: Other Notes: Hypercholesteremia; HLD all that apply # of Emergency department Answers: 1-2 visits in the last 6 months Score: 2 Date Signed: 11/21/2018 11:11 AM Electronically Signed By:Sarah Dc Case Management Discharge Plan Note Case Management Discharge Discharge Order Complete? Answers: Yes Patient to Obtain Answers: via Family Medications Transportation Arranged Answers: Family/Friends Transport will Pick (Date 11/21/2018 12:00 AM & Time) Family Notified Answers: Yes Notes: in the room Discharge Comments Notes: Spoke with pt and in the room. Pt admitted for CVA. PT and OT evaluated and cleared him for home. Pt and comfortable with this plan. No CM needs noted at this time. CM available should needs change. Date Signed: 11/21/2018 11:05 AM Electronically Signed By:Sarah Dc BC CM Progress Note CM Note CM Note Notes: CORRECTION: Pt admitted for expressive aphasia. Negative CVA workup. Date Signed: 11/21/2018 11:07 AM Electronically Signed By:Sarah Dc Intervention Information Intervention Type:*AFSHIN-Signed Date of Service:11/21/2018 11:03 AM Patient Type:Observation Staff Member:Shadia Calhoun Hours: Discipline: Severity: Comment:
--- NOTE | 2018-11-21 11:37 | GDS ---
[f rep st] DISCHARGE SUMMARY DISCHARGE DIAGNOSES: 1. Dysarthria, likely felt secondary to migrainous phenomenon. 2. Known zwmwp-hj-znmj intracardiac shunt. 3. Previous history of lacunar cerebellar infarcts. 4. Implantable loop recorder for uncertain reasons. 5. History of hyperlipidemia. HOSPITAL COURSE: Please see admission history and physical by Yolis Ireland NP. The patient pres ented with acute onset dysarthria. His evaluation revealed a normal noncontrast CT-A of the head and neck with no flow limiting lesions and really no significant atherosclerosis. A brain MRI without o n acute infarct, but evidence of old cerebellar infarcts that were known to him. He had an echocardi ogram showing a oyedx-vi-fify shunt, which is a known phenomenon. He was seen by Neurology who felt that the patient had a migrainous phenomenon causing his speech difficulty. He also had some right-s ided facial droop, which I did not appreciate on exam. His LDL was 60, had no atrial fibrillation on telemetry. A1c is pending. He does not have hypertension. He has not previously had a discussion by closing of his xpzeg-jj-zhoy shunt for progression of migraines. The patient is discharged home with outpatient speech therapy. At the time of discharge, the patient experienced a recrudescence of his dysarthria and expressive aphasia that is mild compared to yester day. The patient is offered further workup, which he declines, other than perhaps a repeat visit wit h Speech Therapy. No new medications are prescribed. /[id number]/MODL
== END 2018-11-21 11:38 | disposition home or self-care (01) ==
LOC: EDUNIT# → F3N 10:05
PROVIDERS: ADMIT Hospitalist; ATTEND Hospitalist
DX: G43.909 Migraine, unspecified, not intractable, without status migrainosus (principal); R47.1 Dysarthria and anarthria; R47.01 Aphasia; Z86.73 Personal history of transient ischemic attack (TIA), and cerebral infarction without residual deficits; E78.5 Hyperlipidemia, unspecified; M15.9 Polyosteoarthritis, unspecified; H40.9 Unspecified glaucoma; Z66 Do not resuscitate; Z95.811 Presence of heart assist device; Z79.82 Long term (current) use of aspirin; Z80.0 Family history of malignant neoplasm of digestive organs
CPT/HCPCS: 70450; 70496; 70498; 70551; 92523; 92610; 93005; 93308; 96372; 97112; 97116; 97161; 97165; 99291; G0378; J1650; Q9967; 82435-PO; 82565-PO; 82947-PO; 84132-PO; 84295-PO; 84484-ER; 84520-PO; 85014-ER; J2997

== ENCOUNTER → 2018-12-07 | Outpatient (CLI) | payer OTHER | LOC: BMCIMAGING 10:04 | PROVIDERS: ATTEND Podiatrist Foot & Ankle Surgery | DX: M21.42 Flat foot [pes planus] (acquired), left foot (principal); M20.12 Hallux valgus (acquired), left foot ==